=== PATIENT | male | born 1960 | race Caucasian/White ===

== ENCOUNTER 2016-07-19 18:09 | Emergency (ER) | payer OTHER ==
[~2016-07-19] VITALS: Ht 182.9 cm; Wt 104.6 kg
[~2016-07-19 18:09] MED LIST: ALBU2.5I INH; AMOX875 PO; IPRA0.02 INH
[2016-07-19 18:20] VITALS: BP 178/108; PULSE 88; RESP 16; TEMP 98.9; O2SAT 96
[2016-07-19] MEDS ORDERED: INSU1INJ5 SQ ×2 (18:30)
[2016-07-19] MEDS ORDERED: NOVOINJ3 SQ ×2 (18:30)
[2016-07-19] MEDS ORDERED: TEST200I12 IM (18:30)
[2016-07-19] MEDS ORDERED: SODIUM CHLORIDE 0.9% FLUSH 5 ML FLUSH IVF PRN (18:30)
--- NOTE | 2016-07-19 18:33 | PD ---
HPI . Right eye irritation Chief Complaint: Neuro Symptoms/ Deficits Time Seen by Provider: 18:21 Travel History International Travel<30 days: No Contact w/Intl Traveler<30days: No Traveled to known affect area: No History of Present Illness HPI Patient was sent to us by his doctor's office for evaluation of possible stroke. Patient reports the onset of right eye irritation yesterday. He states that he has separately developed a headache. He went to see his doctor about it today thinking that there was something in his eye that was irritating him and causing him to have a headache. His doctor instructed him to present to us for further evaluation. The patient has also had some right-sided facial weakness. He denies any associated nausea or vomiting. He denies any extremity weakness. He is not having any problem with speech. He does report feeling off balance a few days ago. PFSH Past Medical History Diabetes: Yes Patient Takes Glucophage: No Tetanus Vaccination: > 5 Years Influenza Vaccination: No Past Surgical History Tonsillectomy: Yes Other Surgery: Yes (Hemorrhoids) Social History Alcohol Use: No Tobacco Use: No Substance Use: Yes (Marijuana daily) Allergies-Medications (Allergen,Severity, Reaction): Coded Allergies: Codeine (Verified Adverse Reaction, Severe, Abdominal pain, 07/19/16) Reported Meds & Prescriptions Reported Meds & Active Scripts Active Amoxil (Amoxicillin) 875 Mg Tab 875 Mg PO BID Atrovent Ud 0.02% (0.5 Mg/2.5 Ml) (Ipratropium [place]) 0.5 Mg/2.5 Ml Nebu 0.5 Mg INH TID Resp: Albuterol 2.5 Mg/3 Ml Neb (Albuterol Sulfate) 2.5 Mg/3 Ml Nebu 2.5 Mg INH Q4H PRN Review of Systems Except as stated in HPI: all other systems reviewed are Neg General / Constitutional: No: Fever, Chills Eyes: Positive: Foreign Body Sensation, Pain HENT: Positive: Headaches Cardiovascular: No: Chest Pain or Discomfort Respiratory: No: Shortness of Breath Gastrointestinal: No: Nausea, Vomiting Neurologic: Positive: Dizziness, Focal Abnormalities, Ataxia, Headache, No: Change in Mentation, Slurred Speech Physical Exam Narrative GENERAL: Healthy-appearing man who is in no acute distress. SKIN: Warm and dry. HEAD: Atraumatic. Normocephalic. EYES: Pupils equal and round. ENT: No nasal bleeding or discharge. Mucous membranes pink and moist. NECK: Trachea midline. CARDIOVASCULAR: Regular rate and rhythm. RESPIRATORY: No accessory muscle use. GASTROINTESTINAL: Abdomen soft, non-tender, nondistended. MUSCULOSKELETAL: No obvious deformities. No edema. NEUROLOGICAL: Awake and alert. Very subtle right-sided facial droop. He is able to wrinkle his forehead normally. His right eyelid drags when he blinks his eyes. Tongue protrudes in the midline. Motor exam of his extremities is intact. Normal speech. PSYCHIATRIC: Appropriate mood and affect; insight and judgment normal. Data Data Last Documented VS Vital Signs Date Time Temp Pulse Resp B/P Pulse Ox O2 Delivery O2 Flow Rate FiO2 07/19/16 18:20 98.9 88 16 178/108 96 Orders Electrocardiogram (07/19/16 18:21) Prothrombin Time / Inr (Pt) (07/19/16 18:21) Act Partial Throm Time (Ptt) (07/19/16 18:21) Complete Blood Count With Diff (07/19/16 18:21) Comprehensive Metabolic Panel (07/19/16 18:21) Ct Brain W/O Iv Contrast(Rout) (07/19/16 18:21) Chest, Single Ap (07/19/16 18:21) Ecg Monitoring (07/19/16 18:21) Iv Access Insert/Monitor (07/19/16 18:21) Oximetry (07/19/16 18:21) Sodium Chloride 0.9% Flush (Ns Flush) (07/19/16 18:30) MDM Medical Decision Making Medical Screen Exam Complete: Yes Emergency Medical Condition: Yes Medical Record Reviewed: Yes (he does not have much in the way of a past medical history. He has been seen before for cough and wheezing.) Interpretation(s) EKG shows a normal sinus rhythm. No ST segment elevation or depression. Differential Diagnosis Differential diagnosis includes but is not limited to TIA, CVA, brain tumor, migraine, anxiety Narrative Course Patient presents to us from his doctor's office for evaluation of possible stroke. He has a right facial nerve palsy. No other neurological defects found. Diagnosis Primary Impression: Weakness on right side of face Paige Franco MD Jul 19, 2016 18:33
[2016-07-19 18:40] VITALS: O2SAT 95
[2016-07-19] MEDS ORDERED: HYPROMELLOSE 0.3 % OPTH GEL 10 GM (0.34 FL OZ) TUBE EACH EYE ONE (18:45)
[2016-07-19 18:46] LABS: AUTOMATED NEUTROPHIL # 4.3 TH/MM3 (1.8-7.7); BASOPHIL % 0.6 % (0.0-2.0); EOSINOPHIL # 0.1 TH/MM3 (0-0.4); EOSINOPHIL % 1.8 % (0.0-4.0); HEMATOCRIT 44.2 % (39.0-51.0); HEMO FLAGS DIFF FINAL; LYMPH % 33.4 % (9.0-44.0); LYMPHOCYTE # 2.5 TH/MM3 (1.0-4.8); MEAN CELL VOLUME 89.6 FL (80.0-100.0); MEAN CORPUSCULAR HEMOGLOBIN 30.8 PG (27.0-34.0); MEAN CORPUSCULAR HGB CONC 34.4 % (32.0-36.0); MONO % 6.4 % (0.0-8.0); NEUT % 57.8 % (16.0-70.0); PLATELET COUNT 190 TH/MM3 (150-450); RED BLOOD COUNT 4.93 MIL/MM3 (4.50-5.90); RED CELL DISTRIBUTION WIDTH 12.2 % (11.6-17.2); WHITE BLOOD COUNT 7.4 TH/MM3 (4.0-11.0)
[2016-07-19 18:51] LABS: CHLORIDE 103 MEQ/L (98-107); POTASSIUM 3.9 MEQ/L (3.5-5.1); SODIUM (NA) 140 MEQ/L (136-145)
[2016-07-19 18:55] LABS: ANION GAP 8 MEQ/L (5-15); BICARBONATE 29.5 MEQ/L (21.0-32.0); BLOOD UREA NITROGEN 17 MG/DL (7-18)
[2016-07-19 18:57] LABS: APTT (PATIENT) 28.6 SEC (24.3-30.1); INTERNATIONAL NORMALIZED RATIO 1.1 RATIO
[2016-07-19 18:58] LABS: ALT (GPT) 77 U/L (12-78); AST (GOT) 37 U/L (15-37); GLOMERULAR FILTRATION RATE 79 ML/MIN (>89)
[2016-07-19 19:00] LABS: TOTAL BILIRUBIN ADULT 0.4 MG/DL (0.2-1.0)
[2016-07-19 19:01] LABS: ALKALINE PHOSPHATASE 83 U/L (45-117)
[2016-07-19 19:06] VITALS: BP 155/66; PULSE 83; O2SAT 96
--- NOTE | 2016-07-19 19:10 | RADHPO ---
EXAM DATE/TIME: 07/19/2016 18:43 [facility] COMPARISON: No previous studies available for comparison. INDICATIONS : Right side facial weakness. RADIATION DOSE: 58.71 CTDIvol (mGy) MEDICAL HISTORY : Diabetes mellitus type 2. SURGICAL HISTORY : None. ENCOUNTER: Initial ACUITY: 1 day PAIN SCALE: 10/10 LOCATION: Right facial TECHNIQUE: Multiple contiguous axial images were obtained of the head. Using automated exposure control and adj ustment of the mA and/or kV according to patient size, radiation dose was kept as low as reasonably a chievable to obtain optimal diagnostic quality images. FINDINGS: CEREBRUM: The ventricles are normal for age. No evidence of midline shift, mass lesion, hemorrhage or acute in farction. No extra-axial fluid collections are seen. POSTERIOR FOSSA: The cerebellum and brainstem are intact. The 4th ventricle is midline. The cerebellopontine angle i s unremarkable. EXTRACRANIAL: The visualized portion of the orbits is intact. SKULL: The calvaria is intact. No evidence of skull fracture. CONCLUSION: Negative noncontrast head CT. Adalid Caputo MD on July 19, 2016 at 19:09 Board Certified Radiologist. This report was verified electronically.
--- NOTE | 2016-07-19 19:11 | RADHPO ---
EXAM DATE/TIME: 07/19/2016 18:46 [facility] COMPARISON: CHEST PA & LAT, October 06, 2013, 11:12. INDICATIONS : Short of breath. MEDICAL HISTORY : None. SURGICAL HISTORY : None. ENCOUNTER: Initial ACUITY: 1 day PAIN SCORE: 0/10 LOCATION: Bilateral chest FINDINGS: A single view of the chest demonstrates the lungs to be symmetrically aerated without evidence of mas s, infiltrate or effusion. The cardiomediastinal contours are unremarkable. Osseous structures are intact. CONCLUSION: No evidence of acute cardiopulmonary disease. Adalid Caputo MD on July 19, 2016 at 19:09 Board Certified Radiologist. This report was verified electronically.
--- NOTE | 2016-07-19 19:26 | PD ---
Physical Exam Date Seen by Provider: Jul 19, 2016 Time Seen by Provider: 19:24 Narrative Accepted in transfer of care from Dr. Franco GENERAL: Well-developed well-nourished male in no acute distress no respiratory distress SKIN: Warm and dry. HEAD: Atraumatic. Normocephalic. EYES: Pupils equal and round. No scleral icterus. No injection or drainage. ENT: No nasal bleeding or discharge. Mucous membranes pink and moist. NECK: Trachea midline. No JVD. CARDIOVASCULAR: Regular rate and rhythm. RESPIRATORY: No accessory muscle use. Clear to auscultation. Breath sounds equal bilaterally. GASTROINTESTINAL: Abdomen soft, non-tender, nondistended. Hepatic and splenic margins not palpable. MUSCULOSKELETAL: Extremities without clubbing, cyanosis, or edema. No obvious deformities. NEUROLOGICAL: Awake and alert. No obvious cranial nerve deficits. Motor grossly within normal limits except for right sided mid face and lower face facial droop sparing the forehead. Five out of 5 muscle strength in the arms and legs. No limb ataxia. No pronator drift. DTRs 2+ and equal bilateral upper extremity's and lower extremities no clonus. Sensory exam intact. Normal speech. PSYCHIATRIC: Appropriate mood and affect; insight and judgment normal. Data Data Last Documented VS Vital Signs Date Time Temp Pulse Resp B/P Pulse Ox O2 Delivery O2 Flow Rate FiO2 07/20/16 00:57 166/96 07/20/16 00:50 78 16 95 07/19/16 23:26 Room Air 07/19/16 18:20 98.9 Orders Electrocardiogram (07/19/16 18:21) Prothrombin Time / Inr (Pt) (07/19/16 18:21) Act Partial Throm Time (Ptt) (07/19/16 18:21) Complete Blood Count With Diff (07/19/16 18:21) Comprehensive Metabolic Panel (07/19/16 18:21) Ct Brain W/O Iv Contrast(Rout) (07/19/16 18:21) Chest, Single Ap (07/19/16 18:21) Ecg Monitoring (07/19/16 18:21) Iv Access Insert/Monitor (07/19/16 18:21) Oximetry (07/19/16 18:21) Sodium Chloride 0.9% Flush (Ns Flush) (07/19/16 18:30) Hypromellose 0.3% Opth Gel (Genteal Iliana (07/19/16 18:45) Mri Brain W/O Contrast (07/19/16 ) Mra Brain W/O Contrast (Cow) (07/19/16 ) Mra Carotids W Contrast (07/19/16 ) Lorazepam Inj (Ativan Inj) (07/19/16 22:00) Aspirin (Aspirin) (07/20/16 01:00) Prednisone (Deltasone) (07/20/16 01:00) Labs Laboratory Tests Test 07/19/16 18:35 White Blood Count 7.4 TH/MM3 Red Blood Count 4.93 MIL/MM3 Hemoglobin 15.2 GM/DL Hematocrit 44.2 % Mean Corpuscular Volume 89.6 FL Mean Corpuscular Hemoglobin 30.8 PG Mean Corpuscular Hemoglobin 34.4 % Concent Red Cell Distribution Width 12.2 % Platelet Count 190 TH/MM3 Mean Platelet Volume 7.5 FL Neutrophils (%) (Auto) 57.8 % Lymphocytes (%) (Auto) 33.4 % Monocytes (%) (Auto) 6.4 % Eosinophils (%) (Auto) 1.8 % Basophils (%) (Auto) 0.6 % Neutrophils # (Auto) 4.3 TH/MM3 Lymphocytes # (Auto) 2.5 TH/MM3 Monocytes # (Auto) 0.5 TH/MM3 Eosinophils # (Auto) 0.1 TH/MM3 Basophils # (Auto) 0.0 TH/MM3 CBC Comment DIFF FINAL Differential Comment Prothrombin Time 12.0 SEC Prothromb Time International 1.1 RATIO Ratio Activated Partial 28.6 SEC Thromboplast Time Sodium Level 140 MEQ/L Potassium Level 3.9 MEQ/L Chloride Level 103 MEQ/L Carbon Dioxide Level 29.5 MEQ/L Anion Gap 8 MEQ/L Blood Urea Nitrogen 17 MG/DL Creatinine 0.99 MG/DL Estimat Glomerular Filtration 79 ML/MIN Rate Random Glucose 163 MG/DL Calcium Level 8.7 MG/DL Total Bilirubin 0.4 MG/DL Aspartate Amino Transf 37 U/L (AST/SGOT) Alanine Aminotransferase 77 U/L (ALT/SGPT) Alkaline Phosphatase 83 U/L Total Protein 7.4 GM/DL Albumin 3.6 GM/DL [facility] Medical Record Reviewed: Yes Supervised Visit with ADEOLA: No Interpretation(s) MRI brain: CONCLUSION: Negative exam. David Núñez MD on July 19, 2016 at 23:37 Board Certified Radiologist. This report was verified electronically. MRA brain: CONCLUSION: 1. 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 Patient is slightly left vertebral dominant 2. Intracranial vessels are otherwise patent. No aneurysmal disease.. David Núñez MD on July 19, 2016 at 23:31 Board Certified Radiologist. This report was verified electronically. Last Impressions Head CT 07/19/16 1821 Signed Impressions: Service Date/Time: Tuesday, July 19, 2016 18:43 - CONCLUSION: Negative noncontrast head CT. Adalid Caputo MD Differential Diagnosis please refer to Dr Muse's dictation Narrative Course Accepted in transfer of care from Dr. Franco for follow-up of pending imaging and patient disposition Direct inspection of the right eye reveals no obvious foreign body with and without lid eversion and no fluorescein uptake noted; eye taped closed for MRI Patient requesting medication for anxiety Discussed case in detail with on-call neurology will see patient in follow-up as outpatient or as directed by primary care provider Physician Communication Physician Communication case discussed with [facility], and neurology -- Dr Arciniega will see as outpatient Diagnosis Primary Impression: Weakness on right side of face Additional Impression: Meneses's palsy Referrals: Neurologist call for appointment [facility] Work[facility] Dr Arciniega or as directed by PCP Primary Care Physician 1 day Patient Instructions: General Instructions Departure Forms: Tests/Procedures, Work Release Special Instructions: no work x 2 days Additional Instruction: Follow-up with primary care provider times one day Return to the emergency department for a concerns or change in condition Follow-up with neurologist call office to schedule follow-up appointment Monitor blood sugars closely Complete course of steroid as prescribed Use eye drops as prescribed as needed for dry eyes and for sleep at night use cosmetic tape to tape eye closed Take antiviral agent as prescribed No work 2 days Med/Other Pt SpecificInfo: Prescription(s) given Scripts Hypromellose Opth Drops (Genteal Mild Opth Drops)0.2% Drops1 Drop RIGHT EYE Q6H PRN (DRY EYE) #1 BOTTLE Ref 0 Prov:Kena Prieto MD 07/20/16 Acyclovir (Zovirax)800 Mg Lfn092 Mg PO 5 TIMES A DAY 7 Days Ref 0 Prov:Kena Prieto MD 07/20/16 Prednisone 50 Mg Tab50 Mg PO DAILY 5 Days Ref 0 Prov:Kena Prieto MD 07/20/16 Disposition: 01 DISCHARGE HOME Condition: Stable Kena Prieto MD Jul 19, 2016 19:26
[2016-07-19 21:45] VITALS: BP 165/104; PULSE 78; O2SAT 98
[2016-07-19] MEDS ORDERED: LORazepam 2 MG/ML VIAL IV PUSH ONE (22:00)
[2016-07-19] MEDS ORDERED: GADODIAMIDE PF 287 MG/ML 20 ML VIAL (for RAD MRI) IV ONE (22:10)
[2016-07-19 23:26] VITALS: BP 155/87; PULSE 93; O2SAT 95
--- NOTE | 2016-07-19 23:35 | RADHPO ---
EXAM DATE/TIME: 07/19/2016 22:41 [facility] COMPARISON: No previous studies available for comparison. INDICATIONS : CVA. MEDICAL HISTORY : Diabetes mellitus type 2. Hypertension. Hypercholesterolemia. SURGICAL HISTORY : Tonsillectomy. Hemorrhoidectomy. ENCOUNTER: Initial ACUITY: 2 day PAIN SCORE: 6/10 LOCATION: Bilateral cranial Please note a normal MRA of the brain does not entirely exclude the possibility of a small aneurysm, nor the possibility of distal intracranial vessel disease. TECHNIQUE: 3D time of flight MRA was performed. Source images, multiplanar STS MIP, and 3D volume MIP reconstru ctions were reviewed. FINDINGS: There is excellent visualization of the major intracranial arteries out to the second-order branch ve ssels. There is no evidence for aneurysm, vessel truncation or stenosis, and no evidence for vascula r malformation. 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 Anterior communicating and both pos terior communicating arteries are patent. Patient is slightly left vertebral dominant. CONCLUSION: 1. 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 Patient is slightly left vertebral dom inant 2. Intracranial vessels are otherwise patent. No aneurysmal disease.. David Núñez MD on July 19, 2016 at 23:31 Board Certified Radiologist. This report was verified electronically.
--- NOTE | 2016-07-19 23:39 | RADHPO ---
EXAM DATE/TIME: 07/19/2016 22:41 [facility] COMPARISON: No previous studies available for comparison. INDICATIONS : CVA. MEDICAL HISTORY : Diabetes mellitus type 2. Hypertension. Hypercholesterolemia. SURGICAL HISTORY : Tonsillectomy. Hemorrhoidectomy. ENCOUNTER: Initial ACUITY: 2 day PAIN SCORE: 7/10 LOCATION: Bilateral cranial TECHNIQUE: Multiplanar, multisequence MRI of the brain was performed without contrast. FINDINGS: CEREBRUM: The ventricles are normal for age. No evidence of midline shift, mass lesion, hemorrhage or acute in farction. No extraaxial fluid collections are seen. The pituitary gland and suprasellar cistern are normal in configuration. WHITE MATTER: No significant signal abnormalities are seen in the white matter. POSTERIOR FOSSA: The cerebellum and brainstem are intact. The 4th ventricle is midline. The cerebellopontine angle is unremarkable. The cerebellar tonsils are normal in position. DIFFUSION IMAGING: No focal areas of restricted diffusion are seen. No evidence of acute infarction. EXTRACRANIAL: The visualized portions of the orbits and paranasal sinuses are unremarkable. CONCLUSION: Negative exam. David Núñez MD on July 19, 2016 at 23:37 Board Certified Radiologist. This report was verified electronically.
[2016-07-20] MEDS ORDERED: ACYC-101 PO (00:47)
[2016-07-20] MEDS ORDERED: PRED50 PO (00:47)
[2016-07-20 00:50] VITALS: PULSE 78; RESP 16; O2SAT 95
[2016-07-20] MEDS ORDERED: GENT0.2D2 RIGHT EYE (00:54)
[2016-07-20 00:57] VITALS: BP 166/96
[2016-07-20] MEDS ORDERED: ASPIRIN 325 MG TAB PO ONE (01:00)
[2016-07-20] MEDS ORDERED: predniSONE 50 MG TAB PO ONE (01:00)
--- NOTE | 2016-07-20 09:57 | RADHPO ---
EXAM DATE/TIME: 07/19/2016 22:41 [facility] COMPARISON: MRA BRAIN W/O CONTRAST, July 19, 2016, 22:41. INDICATIONS : CVA CONTRAST: 20 cc Omniscan (gadodiamide) IV MEDICAL HISTORY : Diabetes mellitus type 2. Hypertension. Hypercholesterolemia. SURGICAL HISTORY : Tonsillectomy. Hemorrhoidectomy. ENCOUNTER: Initial ACUITY: 2 day PAIN SCORE: 7/10 LOCATION: Bilateral cranial Percent stenosis is calculated using the diameter of the stenotic region over the diameter of the nor mal distal internal carotid artery. TECHNIQUE: Bolus infused MRA of the extracranial circulation was performed using a neurovascular coil. Post pro cessing was performed including rotating subvolume maximum intensity projections of each carotid alexis ry, rotating full volume maximum intensity projections of both carotid arteries, sagittal and coronal sliding thin slab reformations of each carotid artery, and left oblique sliding thin slab reformatio n through the aortic arch to include the origin of the arch branch vessels. FINDINGS: There was an equipment malfunction during contrast injection rendering the examination significantly degraded. [id number] MRA was attempted. The [id number] images demonstrate no definite or sign ificant stenosis within the common carotid arteries or internal carotid arteries bilaterally but the vessels are not optimally visualized. Both vertebral arteries are visualized to some degree and the p atient appears left vertebral artery dominant. Arch demonstrates no definite abnormality. CONCLUSION: Imaging quality significantly degraded secondary to equipment malfunction during contrast injection. [id number] imaging suggests no significant stenosis within the internal carotid arteries but exam ination quality is not optimal. If there is any persistent clinical concern for internal carotid alexis ry stenosis, consider carotid ultrasound. Adalid Cedeno MD on July 20, 2016 at 9:44 Board Certified Radiologist. This report was verified electronically.
--- NOTE | 2016-07-20 18:41 | EKG ---
Date Performed: 07/19/2016 Time Performed: 18:25:08 PTAGE: 55 years EKG: Sinus rhythm with borderline 1st degree A-V block Possible faulty V2 - omitted from analysis rSr'(V1) - probable normal variant Borderline ECG PREVIOUS TRACING : 10/06/2013 10.43 DOCTOR: Jaxson Perera Interpretating Date/Time 07/20/2016 18:38:02
== END 2016-07-20 01:08 | disposition home or self-care (01) ==
LOC: PHED 18:09
DX: R53.1 Weakness (principal); G51.0 Bell's palsy; E11.9 Type 2 diabetes mellitus without complications; F12.10 Cannabis abuse, uncomplicated
CPT/HCPCS: 70450; 70544; 70548; 70551; 71010; 80053; 85025; 85610; 85730; 93005; 96374; 99284; J2060; J7512; A9579